=== PATIENT | female | born 1995 | race Caucasian/White ===

== ENCOUNTER → 2023-01-14 | Outpatient (CLI) | payer BC | END | disposition home or self-care (01) | LOC: LABWHC1 15:10 | PROVIDERS: ATTEND Obstetrics & Gynecology | DX: O20.0 Threatened abortion (principal); Z3A.00 Weeks of gestation of pregnancy not specified | CPT/HCPCS: 36415; 84702; 86850; 86900; 86901 ==

== ENCOUNTER → 2023-01-16 | Outpatient (CLI) | payer BC | END | disposition home or self-care (01) | LOC: LABWHC1 09:54 | PROVIDERS: ATTEND Obstetrics & Gynecology | DX: O20.0 Threatened abortion (principal); Z3A.00 Weeks of gestation of pregnancy not specified | CPT/HCPCS: 36415; 84702 ==

== ENCOUNTER → 2023-01-25 | Outpatient (CLI) | payer BC ==
[2023-01-25 12:01] LABS: Basophils % (A) 0 %; Eosinophils # (A) 0.1 k/uL (0-0.7); Eosinophils % (A) 1 %; HGB 12.1 gm/dL (11.4-16.0); Lymphocytes # (A) 1.9 k/uL (1.0-4.8); Lymphocytes % (A) 29 %; MCH 30.6 pg (25.0-35.0); MCHC 33.7 g/dL (31.0-37.0); MCV 90.6 fL (80.0-100.0); Mean Platelet Volume 9.2; Monocytes # (A) 0.4 k/uL (0-1.0); Monocytes % (A) 6 %; Neutrophils # (A) 4.2 k/uL (1.3-7.7); Neutrophils % (A) 63 %; Platelet Count 219 k/uL (150-450); RBC 3.97 m/uL (3.80-5.40); RDW 15.5 % (11.5-15.5); WBC 6.7 k/uL (3.8-10.6)
== END | disposition home or self-care (01) ==
LOC: LABPAT 11:33
PROVIDERS: ATTEND Obstetrics & Gynecology
DX: Z01.812 Encounter for preprocedural laboratory examination (principal); O02.1 Missed abortion; Z3A.00 Weeks of gestation of pregnancy not specified
CPT/HCPCS: 85025; 86850; 86900; 86901

== ENCOUNTER 2023-01-26 09:55 | Day surgery (SDC) | payer BC ==
[~2023-01-26 09:55] MED LIST: DEXAMETHASONE SOD PHOSPHATE 4 MG/ML 1 ML VIAL IV ONE; HYDROmorphone 0.5 MG/0.5 ML SYRINGE IVP PRN; LACTATED RINGERS 1,000 ML IV SCH; LIDOCAINE 1% (10MG/ML) FOR IV START INTRADERMA PRN; MIDAZOLAM 2 MG/2 ML VIAL IV PRN; ONDANSETRON 4 MG/2 ML VIAL IVP ONE; Pre Op ABX Message 1 EACH MISC MISCELLANE ONE
[2023-01-26] MEDS ORDERED: ONDANSETRON 4 MG/2 ML VIAL IVP ONE (10:36)
[2023-01-26] MEDS ORDERED: DEXAMETHASONE SOD PHOSPHATE 4 MG/ML 1 ML VIAL IVP ONE (10:36)
[2023-01-26] MEDS ORDERED: MIDAZOLAM 2 MG/2 ML VIAL IVP ONE (10:42)
[2023-01-26] MEDS ORDERED: HYDROmorphone (PF) 1 MG/ML ONE (11:15)
[2023-01-26] MEDS ORDERED: MIDAZOLAM 2 MG/2 ML VIAL ONE (11:15)
[2023-01-26] MEDS ORDERED: KETOROLAC 15 MG/ML 1 ML VIAL ONE (11:15)
[2023-01-26] MEDS ORDERED: PROPOFOL 10 MG/ML 20 ML VIAL IV ONE (11:15)
[2023-01-26] MEDS ORDERED: LIDOCAINE 1% INJ 10MG/ML (20 ML MDV) ONE (11:15)
[2023-01-26] MEDS ORDERED: fentaNYL (PF) 50 MCG/ML 2 ML AMP ONE (11:15)
[2023-01-26] MEDS ORDERED: METOCLOPRAMIDE 5 MG/ML 2 ML VIAL IVP PRN (11:51)
[2023-01-26] MEDS ORDERED: Acetaminophen-Codeine 300-30mg TAB PO PRN ×2 (11:51)
[2023-01-26] MEDS ORDERED: KETOROLAC 15 MG/ML 1 ML VIAL IVP PRN (11:51)
[2023-01-26] MEDS ORDERED: ONDANSETRON 4 MG/2 ML VIAL IVP PRN (11:51)
[2023-01-26] MEDS ORDERED: diphenhydrAMINE 50 MG/ML 1 ML VIAL IVP PRN (11:51)
[2023-01-26] MEDS ORDERED: SIMETHICONE 80 MG CHEWABLE PO PRN (11:51)
[2023-01-26] MEDS ORDERED: IBUPROFEN 600 MG TAB PO PRN (11:51)
--- NOTE | 2023-01-26 11:51 | P.OP ---
Date of Procedure: 01/26/23 Preoperative Diagnosis: #1. 6+ week missed Postoperative Diagnosis: Same Procedure(s) Performed: #1. Dilation and aspiration curettage Anesthesia: other (Gen. by LMA) Surgeon: Bello Mcdaniels Estimated Blood Loss (ml): 100 IV fluids (ml): 400 Urine output (ml): 50 Pathology: other (Endometrial contents) Condition: stable Disposition: PACU Operative Findings: Preoperative pelvic examination demonstrated roughly 6-7 week anteverted mobile normal shaped uterus with normal adnexa bilaterally. Intraoperatively, the uterus sounded to 12 cm. Using a #8 curved aspiration curet, tissue was clearly seen passing through the tubing on the first 2-3 passes with suction. The typical gritty texture was encountered with the sharp curet. The uterus was appreciably smaller at the end of the case. Description of Procedure: The patient was prepped and draped in usual fashion after general anesthesia was administered by the anesthesiologist. A weighted speculum was placed and the bladder was catheterized approximately 50 mL of clear shiloh urine. The anterior lip of the cervix was grasped with a single-tooth tenaculum and uterus sounded to approximately 12 cm as noted above. Serial dilation was carried out to admit a #8 curved aspiration curet which was placed in the fundus and suction applied. After building adequate suction, thorough and circumferential aspiration curettage was carried out from the fundus to the cervix with tissue clearly seen passing through the tubing. On the third pass, no further tissue was noted and it was set aside in favor of a sharp curette. A medium sharp curette was introduced into the uterine cavity and thorough and circumferential sharp curettage carried out. The typical gritty texture was encountered throughout and no further tissue was noted. One last pass was made with the aspiration curet which time no tissue was noted. The uterus was appreciably smaller at the end of the case. All instrumentation was removed. The points of tenaculum were bleeding and were made hemostatic with pressure. Estimated blood loss for the case was approximately 100 mL. There were no complications. All sponge, instrument, needle counts were correct. The patient tolerated the procedure well and proceeded to the recovery room in stable condition.
[2023-01-26] MEDS ORDERED: LACTATED RINGERS 1,000 ML IV SCH (12:00)
[2023-01-26 12:02] VITALS: TEMP 97.2
[2023-01-26 12:25] VITALS: RESP 16
[2023-01-26 13:14] VITALS: BP 114/75; PULSE 83
[2023-01-27] MEDS ORDERED: ACETAMINOPHEN TAB 325 MG TAB PO PRN (11:52)
== END 2023-01-26 13:26 | disposition home or self-care (01) ==
LOC: OR 09:55
PROVIDERS: ATTEND Obstetrics & Gynecology
DX: O02.1 Missed abortion (principal)
CPT/HCPCS: 59820; 88305; J2250; J1100; J2405; J2001; J3010; J1170; J1885; J2704

== ENCOUNTER 2024-01-30 03:32 | Inpatient (IN) | payer BC ==
[2024-01-30] MEDS ORDERED: TRANEXAMIC 1,000 MG/100ML-NACL 1,000 MG in EMPTY BAG 1 BAG IV PRN (03:57)
[2024-01-30] MEDS ORDERED: OXYTOCIN 10 UNIT/ML 1 ML VIAL IM PRN (03:57)
[2024-01-30] MEDS ORDERED: TERBUTALINE 1 MG/ML VIAL SQ PRN (03:57)
[2024-01-30] MEDS ORDERED: miSOPROStoL 200 MCG TAB PO PRN (03:57)
[2024-01-30] MEDS ORDERED: LIDOCAINE 0.5% (PF) 5 MG/ML (50 ML SDV) SQ PRN (03:57)
[2024-01-30] MEDS ORDERED: METHYLERGONOVINE 0.2 MG/ML 1 ML AMP IM PRN (03:57)
[2024-01-30] MEDS ORDERED: miSOPROStoL 200 MCG TAB RECTAL PRN (03:57)
[2024-01-30] MEDS ORDERED: CARBOPROST TROMETHAMINE 250 MCG/ML 1 ML AMP IM PRN (03:57)
[2024-01-30] MEDS ORDERED: NALBUPHINE 10 MG/ML (10 ML MDV) IV PRN (04:04)
[2024-01-30 04:24] LABS: Basophils # (A) 0.1 k/uL (0-0.2); Basophils % (A) 1 %; Eosinophils # (A) 0.1 k/uL (0-0.7); Eosinophils % (A) 1 %; HCT 34.5 % (34.0-46.0); HGB 12.2 gm/dL (11.4-16.0); Lymphocytes # (A) 2.7 k/uL (1.0-4.8); Lymphocytes % (A) 30 %; MCH 35.3 pg (25.0-35.0); MCHC 35.5 g/dL (31.0-37.0); MCV 99.3 fL (80.0-100.0); Mean Platelet Volume 10.9; Monocytes # (A) 0.5 k/uL (0-1.0); Monocytes % (A) 5 %; Neutrophils # (A) 5.6 k/uL (1.3-7.7); Neutrophils % (A) 63 %; Platelet Count 168 k/uL (150-450); RBC 3.47 m/uL (3.80-5.40); RDW 12.7 % (11.5-15.5)
[2024-01-30] MEDS: LACTATED RINGERS 1,000 ML IV SCH (04:31)
[2024-01-30] MEDS: OXYTOCIN 30 UNITS/500 ML NS 30 UNIT in SALINE 1 500ML.BAG IV SCH (07:45)
--- NOTE | 2024-01-30 11:22 | P.HPOB ---
History of Present Illness H&P Date: 01/30/24 Chief Complaint: 39-6/7 weeks, spontaneous rupture of membranes, early labor The patient is a 28-year-old 2 para 0-0-1-0 admitted at 39-6/7 weeks as established by last menstrual period and confirmed by 8-week ultrasound. She is admitted to triage and found to have spontaneous rupture of membranes with clear fluid. Her has been entirely uncomplicated and group B strep status is negative. On labor and delivery, all signs are reassuring with a category 1 heart rate tracing. Obstetrical history: 2 para 0-0-1-0. Current statistics are listed in history of present illness. EDC of 01/31/2024 was established by last menstrual period and confirmed by 8-week ultrasound. Laboratory workup demonstrates a blood type of B+ with a negative antibody screen. Rubella status is immune. The remainder of the laboratory workup was within normal limits. 1 hour Glucola was elevated but followed by an entirely normal 3-hour glucose t olerance test. Group B strep status is negative. Gynecologic history: Unremarkable with no history of any infections to include STDs. Review of Systems Review of systems is confined to history of present illness. Past Medical History Past Medical History: No Reported History History of Any Multi-Drug Resistant Organisms: None Reported Past Surgical History: No Surgical Hx Reported Additional Past Surgical History / Comment(s): D&C Past Anesthesia/Blood Transfusion Reactions: No Reported Reaction Past Psychological History: No Psychological Hx Reported Smoking Status: Never smoker Past Alcohol Use History: None Reported Past Drug Use History: None Reported Medications and Allergies Home Medications Medication Instructions Recorded Confirmed Type Vit No.179/Iron/Folic 1 tab PO DAILY 01/30/24 01/30/24 History [ Tablet] Allergies Allergy/AdvReac Type Severity Reaction Status Date / Time No Known Allergies Allergy Verified 01/22/23 12:19 Exam Vital Signs Temp Pulse Resp BP Pulse Ox 01/30/24 04:03 98.0 F 86 16 136/65 97 01/30/24 03:36 97.0 F L 90 16 132/82 97 Intake and Output 01/29/24 01/30/24 01/30/24 22:59 06:59 14:59 Other: # Voids 1 Weight 90.718 kg In general, this is a well-developed, well-nourished white female in no acute distress. Her heart has a regular rhythm and rate without murmur. Her lungs are clear to auscultation bilateral in all vasquez. Her abdomen is gravid, nond istended, has normal active bowel sounds, soft, nontender, and without any palpable masses aside from uterine fundus. Her extremities are without any cyanosis, clubbing, or significant edema and are nontender to palpation bilaterally. Digital cervical examination performed by the nursing staff dem onstrates her cervix to be 1+ centimeters dilated, 50% effaced, with the vertex and presentation at -2 station. Spontaneous rupture of membranes is confirmed. Results Result Diagrams: 01/30/24 04:13 Abnormal Lab Results - Last 24 Hours (Table) 01/30/24 Range/Units 04:13 RBC 3.47 L (3.80-5.40) m/uL MCH 35.3 H (25.0-35.0) pg Assessment and Plan (1) Term Current Visit: Yes Status: Acute Code(s): Z34.90 - ENCNTR FOR SUPRVSN OF NORMAL , UNSP, UNSP TRIMESTER SNOMED Code(s): 51428244 (2) Spontaneous rupture of membranes Current Visit: Yes Status: Acute Code(s): HYA2361 - SNOMED Code(s): 366740065 Plan: The patient is admitted for active management of labor. She was given several hours to have labor started on its own which failed to happen. Pitocin augmentation has been added. She will have close maternal and surveillance and expectant management will be practiced. She is a good cand idate for either IV or epidural analgesia, whichever she may choose.
--- NOTE | 2024-01-30 12:04 | P.MSEPDOC ---
Presenting Problems - Arrival Data Date of Arrival on Unit: 01/30/24 Time of Arrival on Unit: 03:32 Mode of Transport: Ambulatory - Complaint OB-Reason for Admission/Chief Complaint: Rule Out SROM Comment: Pt arrives to triage with c/o SROM at 0200, states clear fluid and "very minor cramping" Medical History - Information : 2 Para: 0 Term: 0 : 0 Abortions: Spontaneous or Elective: 1 Number of Living Children: 0 - Gestational Age Gestational Age by MARY (wks/days): 39 Weeks and 6 Days Review of Systems - Review of Systems Constitutional: No problems Breast: No problems ENT: No problems Cardiovascular: No problems Respiratory: No problems Gastrointestinal: No problems Genitourinary: No problems Musculoskeletal: No problems Neurological: No problems Skin: No problems Vital Signs - Temperature Temperature: 98.0 F Temperature Source: Temporal Artery Scan - Pulse Pulse Oximetery Pulse Rate: 86 Pulse Assessment Method: Pulse Oximetry - Respirations Respiratory Rate: 16 Oxygen Delivery Method: Room Air O2 Sat by Pulse Oximetry: 97 - Blood Pressure Right Arm Blood Pressure: 136/65 Blood Pressure Mean: 88 Blood Pressure Source: Automatic Cuff Medical Screen Scoring - Cervical Exam Dilation (cm): 1 Effacement (%): 50 Station: -2 Membranes: Ruptured - Uterine Contractions Frequency From (mins): 5 Frequency To (mins): 7 Duration From (seconds): 50 Duration To (seconds): 70 Intensity: Mild Resting: Soft to palpation - Assessment - Baby A Baseline FHR: 115 Heart Rate - NICHD Category: Category I (Normal) NST: Non-reactive Physician Notification - Physician Notified Physician Notified Date: 01/30/24 Physician Notified Time: 03:53 Physician: Bello Mcdaniels New Order Received: Yes - Notification Comment Comment: Dr. Mcdaniels called at home notified of pt c/o SROM, GA, G/P, VSS, Amnisure positive with clear fluid, NST not yet reactive, CAT 1 FHT,cervical exam /-2, only 2 contractions traced on monitor at this time. Orders to admit pt, start pitocin at 0700, pt may have nubain, nitrus and/or epidural when desired. Maternal Triage Index - Maternal Triage Index Presenting for scheduled procedure w/no complaint: No - Stat/Priority 1 Stat Priority 1: No - Urgent/Priority 2 Urgent Priority 2: No - Prompt/Priority 3 Prompt Priority 3: No - Non-Urgent/Priority 4 Non-Urgent Priority 4: Yes Criteria Met for Priority 4: Pt arrives to triage with c/o SROM at 0200, states clear fluid and "very minor cramping Disposition - Disposition OB Disposition: Admit, LDRP Suite I agree with the RN Medical Screening Exam: Yes Case reviewed; plan agreed upon as documented in EMR&OBIX.: Yes Diagnosis: ENCOUNTER FOR FULL-TERM UNCOMPLICATED DELIVERY
[2024-01-30] MEDS ORDERED: SODIUM CHLORIDE 0.9% 250 ML BAG ONE (15:57)
[2024-01-30] MEDS ORDERED: fentaNYL (PF) 50 MCG/ML 5 ML AMP ONE (15:57)
[2024-01-30] MEDS ORDERED: ROPIVACAINE 5 MG/ML 30 ML VIAL ONE (15:57)
[2024-01-30] MEDS: CITRIC ACID-SODIUM CITRATE 15 ML CUP PO ONE (22:30)
[2024-01-30] MEDS ORDERED: OXYTOCIN 10 UNIT/ML 1 ML VIAL ONE (22:36)
[2024-01-30] MEDS ORDERED: NALBUPHINE (ANES) 10 MG/ML - 1 ML AMP ONE (22:36)
[2024-01-30] MEDS ORDERED: DEXAMETHASONE SOD PHOSPHATE 4 MG/ML 1 ML VIAL ONE (22:36)
[2024-01-30] MEDS ORDERED: KETOROLAC 15 MG/ML 1 ML VIAL ONE (22:36)
[2024-01-30] MEDS ORDERED: MORPHINE SULFATE (PF) 0.3 MG/0.3 ML SYR ONE (22:36)
[2024-01-30] MEDS ORDERED: ONDANSETRON 4 MG/2 ML VIAL ONE (22:36)
[2024-01-30] MEDS ORDERED: LIDOCAINE HCL/PF 20 MG/ML 10 ML AMP ONE (22:36)
[2024-01-30] MEDS ORDERED: diphenhydrAMINE 50 MG CAP PO PRN (23:35)
[2024-01-30] MEDS ORDERED: METOCLOPRAMIDE 5 MG/ML 2 ML VIAL IVP PRN (23:35)
[2024-01-30] MEDS ORDERED: NALOXONE 0.4 MG/ML 1 ML VIAL IV PRN (23:35)
[2024-01-30] MEDS ORDERED: ZOLPIDEM 5 MG TAB PO PRN (23:35)
[2024-01-30] MEDS ORDERED: diphenhydrAMINE 25 MG CAP PO PRN (23:35)
[2024-01-30] MEDS ORDERED: ONDANSETRON 4 MG/2 ML VIAL IVP PRN (23:35)
[2024-01-30] MEDS ORDERED: SIMETHICONE 80 MG CHEWABLE PO PRN (23:35)
[2024-01-30] MEDS ORDERED: diphenhydrAMINE 50 MG/ML 1 ML VIAL IVP PRN ×2 (23:35)
[2024-01-30] MEDS ORDERED: LANOLIN CREAM 1 GM TUBE TOPICAL PRN (23:35)
[2024-01-30] MEDS ORDERED: OXYTOCIN 30 UNITS/500 ML NS 30 UNIT in SALINE 1 500ML.BAG IV SCH (23:45)
[2024-01-30] MEDS: AMPICILLIN 2,000 MG in SODIUM CHLORIDE 0.9% 100 ML IVPB STA (23:46)
--- NOTE | 2024-01-30 23:48 | P.OP ---
Date of Procedure: 01/30/24 Preoperative Diagnosis: #1. 39-6/7 weeks, labor #2. Arrest of descent in the second stage of labor Postoperative Diagnosis: Same Procedure(s) Performed: #1. Primary low-transverse section Anesthesia: epidural Surgeon: Bello Mcdaniels Community Midwife #1: Cele Jeffries Estimated Blood Loss (ml): 1,100 IV fluids (ml): 100 Urine output (ml): 75 Pathology: none sent Condition: stable Disposition: floor Operative Findings: Preoperatively, the patient reached complete dilation and began pushing effectively. She pushed for between 3-1/2 and 4 hours with no descent of the head below 0 to +1 station. She met criteria for arrest of descent and actually requested to undergo primary section. She was taken to the operating room where she underwent primary low-transverse section in an uncomplicated fashion and was delivered of a viable 8 pound 3 ounce baby boy with Apgars of 8 at 1 minute and 9 at 5 minutes delivered in the occiput anterior position. The placenta was delivered manually, intact, grossly normal with a grossly normal three-vessel cord. The uterus, tubes, and ovaries were entirely normal with the exception of a roughly 2 to 3 cm pedunculated fibroid in the top mid fundus of the uterus. She did have an extension of the uterine incision on the left side towards the cervix which caused a fair amount of bleeding but was ultimately controlled with closure. Description of Procedure: The patient was prepped and draped in usual fashion after epidural anesthesia was bolused by the anesthesiologist. A Pfannenstiel incision was made and extended into the abdominal cavity without difficulty. The bladder peritoneum was elevated, incised, and reflected distally. A 2 cm incision was made in the transverse plane of the lower uterine segment to enter the uterus at which time a small amount of clear fluid was again noted. The incision was extended both directions using the bandage scissors. The head was encountered deep within the pelvis in the occiput anterior position and was elevated up and through the incision where the nose and mouth were suctioned. The infant was then delivered onto the field where the cord was doubly clamped, cut, and the passed resuscitative measures with weight and Apgars as noted above. The placenta was delivered manually and intact with a grossly normal three-vessel cord as noted above. The uterus was exteriorized and the 2 to 3 cm mid central fundal fibroid was noted to have an omental adhesion which was lysed using the Bovie. The anterior cavity of the uterus was swept of any remaining placental or membranous fragments and the margins of the incision grasped with Valdez clamps. There was noted to be a moderately deep extension of the left aspect of the incision towards the cervix and blood vessels. This was closed concurrently with the incision in 2 layers. The first layer was a running locking stitch of 0 chromic catgut from the deepest margin of the extension across to the other side of the incision. A second imbricating layer was then placed using 0 chromic catgut. There was some ongoing bleeding at the left angle in the deep pelvis which was made hemostatic with 2 [id number]-bc-pwevz stitches of 0 chromic catgut. Hemostasis then appeared to be excellent. The posterior cul-de-sac was suctioned with a guard followed by laparotomy sponge. The uterine and ovarian findings are as noted above. The uterus was replaced within the abdominal cavity and the gutters were swept of any remaining blood, fluid, or clot. The incision on the uterus was reexamined and covered with surgical powder to enhance continued hemostasis. The parietal peritoneum was loosely reapproximated and the layer of muscles examined and found to be hemostatic. The fascia was closed with a single running stitch of 0 Vicryl proceeding from lateral margin to lateral margin. The subcutaneous tissues were made hemostatic with the Bovie and then reapproximated with a running stitch of 3-0 plain catgut. The skin was reapproximated with a running subcuticular stitch of 4-0 Vicryl from margin to margin followed by half-inch Steri-Strips placed with Mastisol. Estimated blood loss for the case was approximately 1100 mL. There were no complications. All sponge, instrument, and needle counts were correct. The patient tolerated the procedure well and proceeded to the recovery room in stable condition. Both mother and are resting comfortably in recovery.
[2024-01-31] MEDS: LACTATED RINGERS 1,000 ML IV SCH (02:17)
[2024-01-31] MEDS: ACETAMINOPHEN TAB 500 MG TAB PO SCH (04:08)
[2024-01-31 06:52] LABS: Basophils % (A) 0 %; Eosinophils % (A) 0 %; HCT 28.4 % (34.0-46.0); Lymphocytes # (A) 1.4 k/uL (1.0-4.8); Lymphocytes % (A) 8 %; MCH 34.9 pg (25.0-35.0); MCHC 34.7 g/dL (31.0-37.0); MCV 100.6 fL (80.0-100.0); Mean Platelet Volume 11.1; Monocytes # (A) 0.8 k/uL (0-1.0); Monocytes % (A) 5 %; Neutrophils # (A) 13.8 k/uL (1.3-7.7); Neutrophils % (A) 86 %; Platelet Count 139 k/uL (150-450); RBC 2.83 m/uL (3.80-5.40); RDW 12.7 % (11.5-15.5)
[2024-01-31 06:56] LABS: HGB 9.9 gm/dL (11.4-16.0)
[2024-01-31] MEDS: KETOROLAC 15 MG/ML 1 ML VIAL IVP PRN (07:15)
--- NOTE | 2024-01-31 07:56 | P.PNOBGPC ---
Subjective - Subjective Patient reports: Reports appetite normal, Reports voiding normally, Reports pain well controlled, Reports ambulating normally : doing well Objective - Vital Signs Latest vital signs: Vital Signs Temp Pulse Resp BP Pulse Ox 01/31/24 04:00 72 16 125/78 98 01/31/24 01:37 98.0 F 78 16 111/56 98 01/31/24 01:22 97.9 F 67 16 117/61 98 01/31/24 01:07 97.3 F L 69 16 118/62 97 01/31/24 00:52 98.1 F 79 16 98/59 97 01/31/24 00:37 82 16 115/60 98 01/31/24 00:22 76 16 105/70 98 01/31/24 00:07 88 16 136/68 98 01/30/24 23:52 98.4 F 77 16 125/68 99 01/30/24 23:37 97.9 F 81 16 110/63 98 01/30/24 16:23 98.8 F 72 16 115/63 01/30/24 12:04 98.0 F 86 16 136/65 97 Intake and Output 01/30/24 01/31/24 01/31/24 22:59 06:59 14:59 Intake Total 16.117 Output Total 1422 Balance -1405.883 Intake: Intake, IV Titration 16.117 Amount Oxytocin 30 Units/500 ml 16.117 Ns 30 unit In Saline 1 500ml.bag @ Per Protocol IV .Q0M [facility] Rx#:[id number] Output: Urine 250 Output, Estimated Blood 1100 Loss Amount Output, Quantitative 72 Blood Loss Other: Voiding Method Indwelling Catheter - Exam Extremities: Present: normal Abdomen: Present: normal appearance, soft. Absent: distention, tenderness Incision: Present: normal, dry, intact Uterus: Present: normal, firm (The uterine fundus is tonic and nontender below the umbilicus.) - Labs Labs: Abnormal Lab Results - Last 24 Hours (Table) 01/31/24 Range/Units 06:27 WBC 16.0 H (3.8-10.6) k/uL RBC 2.83 L (3.80-5.40) m/uL Hgb 9.9 L D (11.4-16.0) gm/dL Hct 28.4 L (34.0-46.0) % MCV 100.6 H (80.0-100.0) fL Plt Count 139 L (150-450) k/uL Neutrophils # 13.8 H (1.3-7.7) k/uL Assessment and Plan (1) Term Current Visit: Yes Status: Acute Code(s): Z34.90 - ENCNTR FOR SUPRVSN OF NORMAL , UNSP, UNSP TRIMESTER SNOMED Code(s): 79070401 (2) Spontaneous rupture of membranes Current Visit: Yes Status: Acute Code(s): ACL7428 - SNOMED Code(s): 656386393 (3) S/P section Current Visit: Yes Status: Acute Code(s): Z98.891 - HISTORY OF UTERINE SCAR FROM PREVIOUS SURGERY SNOMED Code(s): 981101949 Plan: Continue routine and postoperative care. I have encouraged the patient to ambulate in the hallways routinely. I would anticipate discharge home tomorrow pending no complications.
--- NOTE | 2024-01-31 09:54 | P.PN ---
Progress Note - Text Progress Note Date: 01/31/24 Postoperative day 1 status post section under epidural anesthesia, and epidural morphine given for postoperative analgesia, patient doing well, there is no anesthesia related complications, Patient had no headache, vital signs stable , Assessment and plan= postop day 1 status post , doing well there is no anesthesia related complication.
[2024-01-31] MEDS: SENNOSIDES-DOCUSATE SODIUM 1 EACH TAB PO SCH (10:33)
[2024-01-31 16:28] VITALS: RESP 16
[2024-01-31] MEDS: IBUPROFEN 800 MG TAB PO SCH (23:57)
--- NOTE | 2024-02-01 09:05 | P.DS ---
Providers Date of admission: 01/30/24 03:52 Expected date of discharge: 02/01/24 Attending physician: Bello Mcdaniels Primary care physician: Stated None - Discharge Diagnosis(es) (1) Term Current Visit: Yes Status: Acute (2) Spontaneous rupture of membranes Current Visit: Yes Status: Acute (3) S/P section Current Visit: Yes Status: Acute Hospital Course: The patient is a 28-year-old 2 para 0-0-1-0 admitted at 39-6/7 weeks by good dating parameters. She is admitted with documented spontaneous rupture of membranes and very early labor with all signs reassuring. Her was uncomplicated and group B strep status is negative. On labor and delivery, there was a category 1 heart rate tracing. She ultimately had Pitocin augmentation started and had an epidural catheter placed around the onset of the active phase of labor. She progressed to complete and then pushed for approximately 3-1/2 to 4 hours with no descent of the head below 0 to +1 station. She was taken to the operating room where she underwent primary low- transverse section in an uncomplicated fashion was delivered of a viable 8 pound 3 ounce baby boy with Apgars of 8 at 1 minute and 9 at 5 minutes. Her and postoperative course was unremarkable with vital signs remaining stable and her temperature was afebrile throughout. She was deemed stable for discharge on and postoperative day #2 and was discharged home to follow-up in the office in 2 weeks for an incision check in 6 weeks routinely. Discharge instructions included calling for any significantly increased bleeding or foul-smelling lochia, significantly increased fever abdominal pain, perineal complaints, breast complaints, incisional complaints, or anything else that concerned her. She was additionally instructed to have nothing in the vagina for at least 6 weeks time to include intercourse. She was reinstructed do no heavy lifting over the same period of time. And to abstain from driving until off of all pain medications or 2 weeks time, whichever came first. She understood her instructions and agrees to follow-up as noted above. Discharge medications included continued vitamins as she has opted to breast-feed. She otherwise was to use [id number] analgesic pain medications but was provided with a prescription for oxycodone 5 mg, 1-2 p.o. every 6 hours as needed pain, #20 dispensed with no refills. Maternal blood type is B+ and rubella status is immune. Discharge hemoglobin and hematocrit were 9.9 and 28.4 respectively. Procedures: #1. Pitocin augmentation #2. Epidural analgesia #3. Primary low-transverse section Patient Condition at Discharge: Stable Plan - Discharge Summary New Discharge Prescriptions: No Action Vit No.179/Iron/Folic [ Tablet] 1 tab PO DAILY Discharge Medication List Vit No.179/Iron/Folic [ Tablet] 1 tab PO DAILY 01/30/24 [History] Follow up Appointment(s)/Referral(s): Bello Mcdaniels MD [STAFF PHYSICIAN] - 02/14/24 1:45 pm (Post appointment 03-13-2024 at 1:15pm) Discharge Disposition: HOME SELF-CARE
[2024-02-01 09:55] VITALS: BP 138/91; PULSE 82; TEMP 97.9
--- NOTE | 2024-02-08 11:02 | CDI ---
Documentation Clarification Form Date: 02/08/2024 10:48:11 AM From: Hattie Tolentino Admit Date: 01/30/2024 03:52:00 AM Patient Name: Daniela Fowler Visit Number: [id number] Discharge Date: 02/01/2024 01:15:00 PM ATTENTION: The Clinical Documentation Specialists (CDI) and [facility] Coding Staff appreciate your assistance in clarifying documentation. Please respond to the clarification below the line at the bottom and electronically sign. The CDI & [facility] Coding staff will review the response and follow-up if needed. Please note: Queries are made part of the Legal Health Record. If you have any questions, please contact the author of this message via ITS. Doctor/Provider: Bello Mcdaniels, Your patient has a hemoglobin/hematocrit level on 01/29 of 12.2/34.5 and then on 01/30 of 9.9/284. Blood loss of 1100 mL. Please clarify if there is an additional diagnosis and/or clinical significance related to these lab values and blood loss. History/Risk Factors: 2 Clinical indicators: Underwent primary low-transverse section due to arrest of descent in the second stage of labor. She did have an extension of the uterine incision on the left side towards the cervix which caused a fair amount of bleeding but was ultimately controlled with closure. Treament: There was noted to be a moderately deep extension of the left aspect of the incision towards the cervix and blood vessels. This wasclosedconcurrently with the incision in 2 layers. The first layer was a running locking stitch of 0 chromic catgut from the deepest margin of the extension across to the other side of the incision. A second imbricating layer was thenplacedusing 0 chromic catgut. There was some ongoingbleedingat the left angle in the deep pelvis which was made hemostatic with 2 gskuau-et-mjykv stitches of 0 chromic catgut. Hemostasis then appeared to be excellent. The posterior cul-de-sac was suctioned with a guard followed bylaparotomysponge. The uterine and ovarian findings are as noted above. The uterus wasreplacedwithin the abdominal cavityand the gutters were swept of any remaining blood, fluid, orclot. The incision on the uterus was reexamined and covered with surgical powder to enhance continued hemostasis. The parietal peritoneum was loosely reapproximated and the layer of muscles examined and found to be hemostatic. Is there an additional diagnosis and/or clinical significance related to the above lab result/information: [ ] Acute blood loss anemia [ x ] No additional diagnosis/Not clinically significant [ ] Unable to determine [ ] Other, please specify As usual with obstetrics, this is expected blood loss at the time of delivery though it was more than expected for normal section. Nevertheless she was asymptomatic and no further diagnosis is warranted. Please try to abstain from asking about these unless the patient develops clear symptomatology and requires transfusion. MARCOS
== END 2024-02-01 13:15 | disposition home or self-care (01) | DRG 788 ==
LOC: FBPOP 03:32 → 4FBP 03:52
PROVIDERS: ADMIT Obstetrics & Gynecology; ATTEND Obstetrics & Gynecology
PROC: 10D00Z1 Extraction of Products of Conception, Low, Open Approach (ICD-10-PCS; principal; 2024-01-30 22:28)
DX: O34.13 Maternal care for benign tumor of corpus uteri, third trimester (principal); O32.4XX0 Maternal care for high head at term, not applicable or unspecified; O62.1 Secondary uterine inertia; D25.9 Leiomyoma of uterus, unspecified; Z3A.39 39 weeks gestation of pregnancy; Z37.0 Single live birth
CPT/HCPCS: 59025; 84112; 85025; 86850; 86900; 86901; 99213